=== PATIENT | female | born 1955 | race Caucasian/White ===

== ENCOUNTER 2016-12-17 16:47 | Emergency (ER) | payer SELFPAY ==
[2014-06-24 06:31] VITALS: BMI 31.3
[~2016-12-17 16:47] MED LIST: BUPROPION XL300 MG PO; GLUCOPHAGE500 MG PO; HYDROCODONE-APA1 TAB PO
== END 2016-12-17 20:06 | disposition home or self-care (01) ==
LOC: D.ER 16:47
DX: J06.9 Acute upper respiratory infection, unspecified (principal); J02.9 Acute pharyngitis, unspecified; E11.9 Type 2 diabetes mellitus without complications

== ENCOUNTER 2020-06-13 07:10 | Day surgery (SDC) | payer BC ==
[2020-06-12 14:08] LABS: BASOPHILS 0.5 % (0-2); EOSINOPHILS 2.6 % (0-7); HEMATOCRIT 42.8 % (36.0-48.0); HEMOGLOBIN 14.5 g/dL (12-16); IMMATURE GRANULOCYTES 0.1 % (0-5); LYMPHOCYTES 33.1 % (15-50); MCH 28.5 pg (26.0-34.0); MCHC 33.9 g/dL (31.0-37.0); MCV 84.3 fL (80.0-100.0); MEAN PLATELET VOLUME 11.2 fL (7.4-10.4); NEUTROPHIL ABS# 5.24 10x3/uL (1.56-6.13); NEUTROPHILS 59.7 % (40-80); PLATELET COUNT 207 10x3/uL (130-400); RBC 5.08 10x6/uL (4.00-5.40); RDW 13.4 % (11.5-14.5); WBC 8.8 10x3/uL (4.8-10.8)
[2020-06-12 14:14] LABS: CALC OSMOLALITY 280 mosm/kg (275-300); CALCIUM 8.5 mg/dL (8.5-10.1); CARBON DIOXIDE 28.5 mmol/L (21.0-32.0); CHLORIDE - SERUM 101 mmol/L (98-107); CREATININE - SERUM 0.7 mg/dL (0.6-1.3); GLUCOSE 166 mg/dL (74-106); POTASSIUM - SERUM 3.9 mmol/L (3.5-5.1); SODIUM 138 mmol/L (136-145); UREA NITROGEN 16 mg/dL (7-18); eGFR NON AFRICAN AMERICAN 90 mL/min (90-120)
[~2020-06-13] VITALS: Ht 152.4 cm; Wt 68.0 kg
[~2020-06-13 07:10] MED LIST changes: +BAYER CHEWABLE81 MG PO; +ESTRACE1 MG PO; +GLIPIZIDE10 MG PO; +PROMETRIUM200 MG PO; +TOZAL SOFTGEL1 EACH; +ULTRAM50 MG PO
[2020-06-13 07:54] VITALS: BP 146/73; Ht 152.4 cm; Wt 68.0 kg
--- NOTE | 2020-06-13 08:27 | NUR ---
0827 [facility] [address]. [address]. ALONZO Dietz
[2020-06-13] MEDS ORDERED: VISTARIL50 MG PO (08:42)
[2020-06-13] MEDS ORDERED: HYDROCODON-ACE1 EA10 PO (08:42)
[2020-06-13] MEDS ORDERED: IBUPROFEN600 MG PO (08:43)
--- NOTE | 2020-06-14 10:23 | OP ---
PATIENT NAME: PHYLLIS CARMONA MEDICAL RECORD: [id number] :57 LOCATION:D.OPS ADMISSION DATE: SURGEON: ADRIEN HYLTON DO DATE OF OPERATION: 06/13/2020 PROCEDURE PERFORMED: Left shoulder arthroscopy with biceps tenodesis, subacromial decompression, acromioplasty, distal clavicle excision and ganglion cyst removal of the wrist. PREOPERATIVE DIAGNOSES: Volar cyst of the left wrist, left shoulder superior labrum anterior and posterior tear, subacromial impingement and acromioclavicular joint arthritis. POSTOPERATIVE DIAGNOSES: Volar cyst of the left wrist, left shoulder superior labrum anterior and posterior tear, subacromial impingement and acromioclavicular joint arthritis. INDICATIONS: Ms. Caromna is a 65-year-old female who has had left shoulder pain and wrist pain for quite some time. She has a known cyst that has come back twice. The left shoulder, she had an MRI that showed the above findings. She was aware of the risk of this including infection, bleeding, continued pain, arthrofibrosis of the shoulder, need for further surgery, infection, bleeding, damage to nerves and vessels in the area and she signed a consent. SURGEON: Adrien Hylton DO DESCRIPTION OF PROCEDURE: The patient was taken to the operative suite, laid in the right lateral decubitus position with the left shoulder up, given 900 mg of clindamycin. She was given a block by anesthesia in the preoperative area prior to this. The arm was then prepped and draped in sterile fashion. A timeout was performed, everyone was in agreeance with the correct side, site, patient and procedure. Left upper extremity was exsanguinated and tourniquet was inflated to 250 mmHg, it was up for 5 minutes and let down. I then began by making an incision over the volar ganglion cyst, just over the radial aspect, make careful dissection down to the cyst and removed it. It came out quite nicely and sent to the lab. I then started the shoulder scope portion, entered an 18-gauge spinal needle through the posterior portal site and inflated the shoulder joint with 60 mL of normal saline. I then with an 11-blade scalpel opened up the posterior portal and then the trocar was entered into the shoulder joint. I then performed an anterior portal with an 18-gauge spinal needle and 11-blade scalpel, trocar was brought in, saw the SLAP tear was quite extensive. I then brought in a burner, did a biceps tenotomy at that point. Inspected the rotator cuff, all rotator cuff tendons were intact and no tears were seen in them. 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 There was nothing in the inferior gutter either. I then went to the subacromial space, established a lateral portal using a 18-gauge spinal needle and 11-blade scalpel, brought in the burner, cleaned off the acromion, showed a nice bone spur on it. Then, through the lateral portal, brought in a shaver and did an acromioplasty, subacromial decompression through the anterior portal. I did a distal clavicle excision, opened up the AC joint approximately 7-mm. I then debrided the subacromial space and no tears were seen on the bursal side. I then removed the scope, went to the anterior humerus and made an incision, made careful dissection down to the long head of biceps tendon, dissected it out and whipstitched it and then put a unicortical hole in the humerus and put in a JuggerLoc loop stitch, looped the tendon through the loop, cinched it down and OPERATIVE REPORT [id number] PHYLLIS CARMONA tied the loop stich to the loop JuggerKnot. Cinched it down then cut the JuggerKnot loop and sutured it through the tendon, tied it down, cut the excess tendon and suture. We then irrigated. Josep Mcfadden, certified surgical assistant golf course superintendent then closed the wound of the biceps with 2-0 Vicryl in inverted interrupted fashion, 4-0 Monocryl ran on the skin, 4-0 Monocryl in inverted interrupted fashion on the portal sites and Dermabond glue on all of them. She was then dressed with Dermabond, Telfa and Tegaderm, awakened, put in a sling and taken to recovery in stable condition. BLOOD LOSS: Minimal. COMPLICATIONS: None. TRANSINT:[id number] Voice Confirmation ID: [id number] DOCUMENT ID: [id number] ADRIEN HYLTON DO at 1023 CC: [id number] DICTATION DATE: 06/13/20 1113 VALVE REPAIRER RECLAMATION: 06/13/20 1534 [facility] 06/13/20 [place] [id number] [place] [id number]
== END 2020-06-13 14:00 | disposition home or self-care (01) ==
LOC: D.OPS 07:10
PROVIDERS: Anesthesiology; ATTEND Orthopaedic Surgery
DX: S43.432D Superior glenoid labrum lesion of left shoulder, subsequent encounter (principal); X58.XXXD Exposure to other specified factors, subsequent encounter; M75.42 Impingement syndrome of left shoulder; M13.812 Other specified arthritis, left shoulder; M67.432 Ganglion, left wrist; E11.9 Type 2 diabetes mellitus without complications; E78.5 Hyperlipidemia, unspecified